=== PATIENT | male | born 1945 | race Caucasian/White ===

== ENCOUNTER 2016-04-24 10:52 | Outpatient (CLI) | payer MEDICARE, OTHER ==
[2015-10-11 14:33] VITALS: BP 150/70
== END 2016-04-24 10:53 ==
LOC: RT 10:52
PROVIDERS: ATTEND Family Medicine
DX: R00.1 Bradycardia, unspecified (principal)

== ENCOUNTER 2017-02-08 11:45 | Outpatient (CLI) | payer MEDICARE, OTHER ==
[2015-10-11 14:33] VITALS: BP 150/70
== END 2017-02-08 11:46 ==
LOC: LAB 11:45
PROVIDERS: ATTEND Family Medicine
DX: E78.5 Hyperlipidemia, unspecified (principal); Z12.5 Encounter for screening for malignant neoplasm of prostate
CPT/HCPCS: 36415; 80061; 84153; G0103

== ENCOUNTER 2018-02-25 09:00 | Outpatient (CLI) | payer MEDICARE, OTHER ==
[2015-10-11 14:33] VITALS: BP 150/70
== END 2018-02-25 09:05 | disposition home or self-care (01) ==
LOC: LAB 09:00
PROVIDERS: ATTEND Family Medicine
DX: Z12.5 Encounter for screening for malignant neoplasm of prostate (principal); I25.10 Atherosclerotic heart disease of native coronary artery without angina pectoris; E78.00 Pure hypercholesterolemia, unspecified
CPT/HCPCS: 36415; 80061; G0103; 84153

== ENCOUNTER 2018-04-30 14:58 | Outpatient (CLI) | payer MEDICARE, OTHER ==
[2015-10-11 14:33] VITALS: BP 150/70
--- NOTE | 2018-04-30 15:46 | Diagnostic Imaging Report ---
JOLIE NARAYAN [facility] [address] [facility].[address] [id number] Report Submission Date: Apr 30, 2018 3:27:21 PM WELDER MACHINE OPERATOR Patient Study Name: KHANG NORIEGA Date: Apr 30, 2018 3:04:32 PM WELDER MACHINE OPERATOR Modality Type: DX Gender: M Description: L SPINE 2 OR 3 VIEWS : 41 Institution: [facility] Physician: JOLIE NARAYAN Exam: Lumbar spine. History: Right-sided lower back pain. AP and lateral view the lumbar spine are submitted. 5 functional lumbar vertebra are identified. Subtle dextroscoliosis in the upper lumbar spine is noted. Vertebral body heights are adequately maintained. Disc space with endplate sclerosis and spurring at L2-3, L3-4, and L4-5 levels are noted. No spondylolisthesis is identified. Atherosclerotic plaque is seen in the abdominal aorta. Impression: Mild dextroscoliosis. Mild degenerative disc disease at L2-3, L3-4 and L4-5 levels. Electronically signed on Apr 30, 2018 3:27:21 PM WELDER MACHINE OPERATOR by: Ant REAVES
--- NOTE | 2018-04-30 16:16 | Diagnostic Imaging Report ---
JOLIE NARAYAN [facility] [address] [facility] [address] [address] Report Submission Date: Apr 30, 2018 4:07:38 PM TECHNICAL ARCHITECT Patient Study Name: KHANG NORIEGA Date: Apr 30, 2018 3:29:08 PM TECHNICAL ARCHITECT Modality Type: CT Gender: M Description: CT L-SPINE W/O CONTRAS : 41 Institution: [facility] Physician: JOLIE NARAYAN Examination: CT lumbar spine History: CHRONIC RIGHT LOWER BACK PAIN Comparison exams: Technique: CT lumbar spine axial imaging with sagittal and coronal reconstruction Findings: Sagittal reconstruction demonstrates normal height and alignment the lumbar vertebral bodies. No anterior compression deformity. Anterior and lateral osteophytes. L4/L5 disc space narrowing. Coronal reconstruction does not demonstrate locked or perched facets. Atherosclerotic disease involving the abdominal aorta. Axial imaging obtained from T12 through the sacrum Lamina and pedicles are intact. No ossific density within the central canal. Scattered facet degenerative changes. Central canal and neuroforaminal narrowing: most pronounced at L3/L4 and L4/L5. No prevertebral soft tissue abnormality. Impression: Multilevel degenerative changes. No evidence for vertebral body compression fracture. If patient is experiencing neurologic symptoms, consider obtaining MRI to further evaluate. Electronically signed on Apr 30, 2018 4:07:38 PM TECHNICAL ARCHITECT by: Quintin REAVES
== END 2018-04-30 15:00 ==
LOC: RAD 14:58
PROVIDERS: ATTEND Family Medicine
DX: M51.36 Other intervertebral disc degeneration, lumbar region (principal); M41.86 Other forms of scoliosis, lumbar region; M54.31 Sciatica, right side
CPT/HCPCS: 72100; 72131

== ENCOUNTER 2019-02-25 08:12 | Outpatient (CLI) | payer MEDICARE, OTHER ==
[2015-10-11 14:33] VITALS: BP 150/70
[2019-02-25 09:36] LABS: HDL 36 mg/dL (>40); eGFR (Non-African) > 60
== END 2019-02-25 08:17 ==
LOC: LAB 08:12
PROVIDERS: ATTEND Family Medicine
DX: Z12.5 Encounter for screening for malignant neoplasm of prostate (principal); E78.00 Pure hypercholesterolemia, unspecified
CPT/HCPCS: 36415; 80053; 80061; 84153